=== PATIENT | male | born 1955 | race Caucasian/White ===

== ENCOUNTER 2016-08-23 09:03 | Inpatient (IN) | payer MEDICARE, BC ==
[2016-08-23] MEDS ORDERED: MORPHINE SULFATE 4 MG/ML SYRINGE IV STA (09:18)
[2016-08-23] MEDS ORDERED: ASPIRIN 81 MG CHEW PO STA (09:18)
[2016-08-23] MEDS ORDERED: NITROGLYCERIN OINT 1 INCH/GM PACKET TOPICAL STA (09:18)
--- NOTE | 2016-08-23 09:21 | ED ---
General Adult HPI - General Chief complaint: Chest Pain Stated complaint: Chest Pain Time Seen by Provider: 08/23/16 09:07 Source: patient, RN notes reviewed Mode of arrival: EMS Limitations: no limitations - History of Present Illness Initial comments: Patient is a pleasant 61-year-old male presenting to the emergency department chest discomfort. Onset was prior to arrival. Patient felt an ache in his chest. There is radiation to both arms. Discomfort is currently 8/10. Patient took one nitroglycerin at home and one in route by EMS without improvement of symptoms. Patient may have mild shortness of breath. No associated nausea or diaphoresis. Patient did have similar symptoms back and 95 associated with angina. Patient was told he had a heart attack 2 years ago however had no symptoms at that time. - Related Data Home Medications Medication Instructions Recorded Confirmed Aspirin 325 mg PO DAILY 05/31/15 08/23/16 Cholecalciferol [Vitamin D3] 1,000 unit PO DAILY 05/31/15 08/23/16 Gabapentin [Neurontin] 600 mg PO DAILY 05/31/15 08/23/16 Glimepiride [Amaryl] 2 mg PO DAILY 05/31/15 08/23/16 Lisinopril [Prinivil] 5 mg PO DAILY 05/31/15 08/23/16 Ubidecarenone [Co Q-10] 100 mg PO DAILY 05/31/15 08/23/16 Vit A,C & E/Lutein/Minerals 1 tab PO DAILY 05/31/15 08/23/16 [Ocuvite with Lutein Tablet] metFORMIN HCL 1,000 mg PO Q12HR 05/31/15 08/23/16 Gabapentin [Neurontin] 900 mg PO HS 08/23/16 08/23/16 Allergies Allergy/AdvReac Type Severity Reaction Status Date / Time erythromycin base Allergy Severe Rash/Hives Verified 08/23/16 09:55 Sulfa (Sulfonamide Allergy Severe Rash/Hives Verified 08/23/16 09:55 Antibiotics) heparin AdvReac Severe Unknown Verified 08/23/16 09:55 Review of Systems ROS Statement: Those systems with pertinent positive or pertinent negative responses have been documented in the HPI. ROS Other: All systems not noted in ROS Statement are negative. Constitutional: Denies: fever Eyes: Denies: eye pain ENT: Denies: ear pain Respiratory: Denies: cough Cardiovascular: Reports: chest pain Endocrine: Denies: fatigue Gastrointestinal: Denies: abdominal pain Genitourinary: Denies: dysuria Musculoskeletal: Denies: back pain Skin: Denies: rash Neurological: Denies: weakness Past Medical History Past Medical History: Asthma, Diabetes Mellitus, Hypertension, Myocardial Infarction (ND), Neurologic Disorder, Osteoarthritis (OA), Skin Disorder Additional Past Medical History / Comment(s): RSD, lacerated spleen, venous stasis ulcers Last Myocardial Infarction Date:: 11/2013 History of Any Multi-Drug Resistant Organisms: MRSA Date of last positivie culture/infection: 08/24/15 MDRO Source:: Left knee Past Surgical History: Heart Catheterization, Pacemaker Additional Past Surgical History / Comment(s): spinal stimulator, 2 intrathecal pump, carpal tunnel, ulnar nerve, 2 pacemakers Past Anesthesia/Blood Transfusion Reactions: No Reported Reaction, Previous Problems w/ Anesthesia Additional Past Anesthesia/Blood Transfusion Reaction / Comment(s): surgery 2006 (removal of stimulator fromn infection)-6-8 hours of anesthisia, major fluid retention Date of Last Stent Placement:: none Type of Cardiac Device: Unknown Device Placement Date:: none Past Psychological History: No Psychological Hx Reported Smoking Status: Former smoker Past Alcohol Use History: None Reported Past Drug Use History: None Reported - Past Family History Father Family Medical History: Cancer General Exam Limitations: no limitations General appearance: alert, in no apparent distress Head exam: Present: atraumatic Eye exam: Present: normal appearance, PERRL ENT exam: Present: normal oropharynx Neck exam: Present: normal inspection Respiratory exam: Present: normal lung sounds bilaterally. Absent: chest wall tenderness Cardiovascular Exam: Present: regular rate, normal rhythm Expanded Peripheral pulses: 2+: Radial (R), Radial (L), Posterior Tibialis (R), Posterior Tibialis (L) GI/Abdominal exam: Present: soft. Absent: tenderness Extremities exam: Present: normal inspection. Absent: pedal edema, calf tenderness Neurological exam: Present: alert Psychiatric exam: Present: normal affect, normal mood Skin exam: Absent: rash Course Vital Signs 08/23/16 08/23/16 08/23/16 09:04 09:18 10:03 Temperature 98.4 F Pulse Rate 66 57 L Respiratory 18 18 Rate Blood Pressure 151/72 160/72 O2 Sat by Pulse 96 95 Oximetry EKG Findings - EKG Comments: EKG Findings:: Normal sinus rhythm at 67. Normal intervals. Left axis. Inferior and anterior Q waves. No acute ST change. Medical Decision Making - Medical Decision Making Patient reexamined and resting comfortably in bed. Discomfort is mild at this time. Case discussed in detail with Dr. Coburn, who will admit for hospital call. Patient and family updated. Admission orders written. Cardiology consult placed. - Lab Data Result diagrams: 08/23/16 09:17 08/23/16 09: Lab Results 08/23/16 08/23/16 08/23/16 Range/Units 09: 09: 09:17 WBC 4.6 (3.8-10.6) k/uL RBC 4.48 (4.30-5.90) m/uL Hgb 12.4 L (13.0-17.5) gm/dL Hct 38.7 L (39.0-53.0) % MCV 86.3 (80.0-100.0) fL MCH 27.7 (25.0-35.0) pg MCHC 32.0 (31.0-37.0) g/dL RDW 16.4 H (11.5-15.5) % Plt Count 162 (150-450) k/uL Neutrophils % 60 % Lymphocytes % 25 % Monocytes % 5 % Eosinophils % 5 % Basophils % 1 % Neutrophils # 2.8 (1.3-7.7) k/uL Lymphocytes # 1.2 (1.0-4.8) k/uL Monocytes # 0.3 (0-1.0) k/uL Eosinophils # 0.2 (0-0.7) k/uL Basophils # 0.0 (0-0.2) k/uL Hypochromasia Slight Anisocytosis Slight PT (9.0-12.0) sec INR (<1.1) APTT (22.0-30.0) sec D-Dimer (<0.60) mg/L FEU Sodium 140 (137-145) mmol/L Potassium 4.1 (3.5-5.1) mmol/L Chloride 100 (98-107) mmol/L Carbon Dioxide 26 (22-30) mmol/L Anion Gap 14 mmol/L BUN 19 (9-20) mg/dL Creatinine 0.94 (0.66-1.25) mg/dL Est GFR (MDRD) Af Amer >60 (>60 ml/min/1.73 sqM) Est GFR (MDRD) Non-Af >60 (>60 ml/min/1.73 sqM) Glucose 201 H (74-99) mg/dL Calcium 9.8 (8.4-10.2) mg/dL Magnesium 1.7 (1.6-2.3) mg/dL Total Bilirubin 0.7 (0.2-1.3) mg/dL AST 45 (17-59) U/L ALT 38 (21-72) U/L Alkaline Phosphatase 40 (38-126) U/L Total Creatine Kinase 1052 H (55-170) U/L CK-MB (CK-2) 9.9 H* (0.0-2.4) ng/mL CK-MB (CK-2) Rel Index 0.9 Troponin I 0.024 (0.000-0.034) ng/mL Total Protein 8.3 H (6.3-8.2) g/dL Albumin 4.4 (3.5-5.0) g/dL 08/23/16 Range/Units 09:17 WBC (3.8-10.6) k/uL RBC (4.30-5.90) m/uL Hgb (13.0-17.5) gm/dL Hct (39.0-53.0) % MCV (80.0-100.0) fL MCH (25.0-35.0) pg MCHC (31.0-37.0) g/dL RDW (11.5-15.5) % Plt Count (150-450) k/uL Neutrophils % % Lymphocytes % % Monocytes % % Eosinophils % % Basophils % % Neutrophils # (1.3-7.7) k/uL Lymphocytes # (1.0-4.8) k/uL Monocytes # (0-1.0) k/uL Eosinophils # (0-0.7) k/uL Basophils # (0-0.2) k/uL Hypochromasia Anisocytosis PT 10.6 (9.0-12.0) sec INR 1.0 (<1.1) APTT 23.1 (22.0-30.0) sec D-Dimer 0.70 H (<0.60) mg/L FEU Sodium (137-145) mmol/L Potassium (3.5-5.1) mmol/L Chloride (98-107) mmol/L Carbon Dioxide (22-30) mmol/L Anion Gap mmol/L BUN (9-20) mg/dL Creatinine (0.66-1.25) mg/dL Est GFR (MDRD) Af Amer (>60 ml/min/1.73 sqM) Est GFR (MDRD) Non-Af (>60 ml/min/1.73 sqM) Glucose (74-99) mg/dL Calcium (8.4-10.2) mg/dL Magnesium (1.6-2.3) mg/dL Total Bilirubin (0.2-1.3) mg/dL AST (17-59) U/L ALT (21-72) U/L Alkaline Phosphatase (38-126) U/L Total Creatine Kinase (55-170) U/L CK-MB (CK-2) (0.0-2.4) ng/mL CK-MB (CK-2) Rel Index Troponin I (0.000-0.034) ng/mL Total Protein (6.3-8.2) g/dL Albumin (3.5-5.0) g/dL - Radiology Data Radiology results: report reviewed (Computed tomography scan of the chest shows no pulmonary embolism. Stable exam.), image reviewed (Two-view chest x-ray shows mild interstitial change.) Disposition Clinical Impression: Elevated CPK, Chest pain Disposition: ADMITTED IP TO THIS HOSP
[2016-08-23 09:37] LABS: Anisocytosis Slight; Basophils % (A) 1 %; CH 27.2; CHCM 31.6; Eosinophils # (A) 0.2 k/uL (0-0.7); Eosinophils % (A) 5 %; HCT 38.7 % (39.0-53.0); HGB 12.4 gm/dL (13.0-17.5); Hypochromasia Slight; Luc # (Auto) 0.14; Luc % (Auto) 3; Lymphocytes # (A) 1.2 k/uL (1.0-4.8); Lymphocytes % (A) 25 %; MCH 27.7 pg (25.0-35.0); MCV 86.3 fL (80.0-100.0); Mean Platelet Volume 7.5; Monocytes # (A) 0.3 k/uL (0-1.0); Monocytes % (A) 5 %; Neutrophils # (A) 2.8 k/uL (1.3-7.7); Neutrophils % (A) 60 %; RBC 4.48 m/uL (4.30-5.90); RDW 16.4 % (11.5-15.5); WBC 4.6 k/uL (3.8-10.6); WBC (Perox) 4.61
[2016-08-23 09:46] LABS: Partial Thromboplastin Time 23.1 sec (22.0-30.0); Prothrombin Time 10.6 sec (9.0-12.0)
[2016-08-23 10:04] LABS: Troponin I 0.024 ng/mL (0.000-0.034)
[2016-08-23 10:08] LABS: Creatine Kinase MB 9.9 ng/mL (0.0-2.4)
[2016-08-23] MEDS ORDERED: RX INFO: IV CONTRAST WAS GIVEN 1 EACH MISC MISCELLANE PRN (10:10)
[2016-08-23 10:25] LABS: ALT 38 U/L (21-72); AST 45 U/L (17-59); Alkaline Phosphatase 40 U/L (38-126); Anion Gap 14 mmol/L; Blood Urea Nitrogen 19 mg/dL (9-20); Calcium 9.8 mg/dL (8.4-10.2); Carbon Dioxide 26 mmol/L (22-30); Chloride 100 mmol/L (98-107); Glucose 201 mg/dL (74-99); Magnesium 1.7 mg/dL (1.6-2.3); Non-African American GFR(MDRD) >60 (>60 ml/min/1.73 sqM); Potassium 4.1 mmol/L (3.5-5.1); Sodium 140 mmol/L (137-145); Total Bilirubin 0.7 mg/dL (0.2-1.3); Total Protein 8.3 g/dL (6.3-8.2)
--- NOTE | 2016-08-23 10:29 | XR ---
EXAMINATION TYPE: XR chest 2V DATE OF EXAM: 08/23/2016 9:50 AM COMPARISON: None HISTORY: 61-year-old male with chest pain TECHNIQUE: AP and lateral views FINDINGS: Heart is upper limits of normal in size. Aorta within normal limits. Diffuse interstitial opacities p robably in part chronic. Strandy atelectasis at the left base. No tahir consolidation or pleural effu kevin. Right anterior chest wall pacemaker generator with right atrial and right ventricular leads. IMPRESSION: Diffuse interstitial opacities probably in part chronic. Correlate to exclude mild CHF.
--- NOTE | 2016-08-23 11:17 | CT ---
CT CHEST FOR PULMONARY EMBOLISM. EXAMINATION TYPE: CT angio chest DATE OF EXAM: 08/23/2016 10:58 AM INDICATION: Chest pain with SOB CT DLP: 404.1 mGycm, Automated exposure control for dose reduction was used. CONTRAST: Patient injected with 62 mL of Omnipaque 350. COMPARISON: 09/13/2014 CT chest TECHNIQUE: CT of the chest is performed on a spiral scan at 2 mm thick sections. Study is performed with intravenous contrast timed for evaluation for pulmonary embolism. This will limit additional po rtions of the evaluation. 3-D MIP images reconstructed by the technologist are reviewed on the compu ter in the coronal and sagittal planes. FINDINGS: No persistent filling defects are evident to suggest an acute pulmonary embolism. No mediastinal or hilar adenopathy enlarged by CT criteria is evident. The ascending aorta diameter at the level of the main pulmonary artery is 3.4 cm. The main pulmonary artery diameter at the bifur cation is 2.6 cm. Small hiatal hernia is present. There is a 0.5 cm density adjacent to the pleura in the posterior rig ht midlung. Image 61. A 0.9 cm nodules in the posterior medial right midlung. Series 5 image 69. Thes e are present on the comparison CT of 09/13/2014. Minimal compressive atelectasis is within the left lung base. Limited CT section through the upper abdomen are unremarkable. IMPRESSIONS: 1. No acute pulmonary process. 2. Stable nodules from September 2014.
[2016-08-23] MEDS ORDERED: NITROGLYCERIN SL TABS 0.4 MG TAB SUBLINGUAL PRN (11:36)
[2016-08-23 12:45] LABS: Glucose,Whole Blood 160 mg/dL (75-99)
[2016-08-23] MEDS ORDERED: ENOXAPARIN 100 MG/ML SYRINGE SQ STA (13:49)
[2016-08-23] MEDS ORDERED: AMINOPHYLLINE 500 MG/20 ML VIAL IV PRN (15:09)
[2016-08-23 15:36] VITALS: BMI 31.3
[2016-08-23 17:01] LABS: Glucose,Whole Blood 152 mg/dL (75-99)
[2016-08-23] MEDS: NITROGLYCERIN OINT 1 INCH/GM PACKET TOPICAL SCH ×2 (17:33→22:16)
[2016-08-23] MEDS: LISINOPRIL 5 MG TAB PO SCH (17:39)
[2016-08-23] MEDS: METOPROLOL TARTRATE 25 MG TAB PO SCH (17:39)
[2016-08-23 18:09] LABS: Creatine Kinase MB 12.9 ng/mL (0.0-2.4)
[2016-08-23 18:10] LABS: Troponin I 1.34 ng/mL (0.000-0.034)
[2016-08-23] MEDS: GABAPENTIN 300 MG CAP PO SCH (20:59)
--- NOTE | 2016-08-23 21:35 | CONS ---
DATE OF CONSULTATION: 08/23/2016 This is a 61-year-old gentleman who has multiple medical problems and has his cardiac care at [facility] under the care of Dr. Shaggy Miranda. This gentleman apparently has a history of some ulnar nerve surgery followed by reflex sympathetic dystrophy with pain all over the body. He uses muscle stimulators. He has an intrathecal catheter with a pump under his skin over the abdomen. He has a permanent pacemaker, details of which are unavailable, and the pacemaker was placed in the late . He also has a history of coronary artery disease with previous angioplasty in the mid-. Does not recall a documented RI, but has ordered RI on EKG. This is his background history. He came into the hospital because of an episode of what he describes as a sensation of a very warm feeling in his chest, an achy sensation that seemed to hit them rather suddenly, radiating to both upper extremities. He took a nitroglycerin with no relief obtained. He then came into the hospital. No nausea or diaphoresis. He is resting comfortably. Symptoms are better, but he did have this at rest. He also has occasional exertional chest discomfort. He is comfortable and symptom-free at this time. He has a history of type 2 diabetes mellitus as well and significant risk factors for coronary artery disease. PAST MEDICAL HISTORY: 1. CAD with prior RI and PTCA, details unclear, in mid or early . 2. Bronchial asthma. 3. Type 2 diabetes mellitus. 4. Hypertension. 5. History of some ulnar neuropathy, followed by reflex sympathetic dystrophy, details are unclear. Medications at home include aspirin, vitamin supplements, Amaryl 2 mg daily, lisinopril 5 mg daily, vitamin supplements, metformin 1000 mg every 12 hours. ALLERGIES: ERYTHROMYCIN, SULFA, QUESTION OF INTRAVENOUS IV HEPARIN ALLERGY and he says that he just feels different when he takes heparin. The type of allergy is somewhat unclear, however, he can tolerate enoxaparin. On examination, blood pressure is 140/70, pulse rate is 68 per minute, regular. HEENT unremarkable. Fundus was not examined by me. Neck is supple. There is no JVD. I do not hear a carotid bruit. Heart exam reveals S1 and S2 heard normally. There is a short systolic murmur at the base with preserved second heart sound. Lungs are clear. Abdomen is soft, nontender. There is a subcutaneous pump noted for his intrathecal injection. No organomegaly. Right lower extremity has chronic changes with some edema and there is a nonhealing ulcer. Left lower extremity reveal diminished pulses. Right lower extremity pulses are not palpable. Central nervous system grossly no focal deficits. EKG revealed a sinus mechanism with minor nonspecific ST-T changes, no acute findings, evidence of old inferior RI. IMPRESSION: 1. Atypical chest pain in a patient with history of coronary artery disease and multiple risk factors. 2. Type 2 diabetes mellitus. 3. History of prior myocardial infarction and percutaneous transluminal coronary angioplasty. 4. History of ulnar nerve surgery and reflex sympathetic dystrophy. RECOMMENDATIONS: I am recommending that we continue with IV heparin, perform serial troponins, update an echocardiogram and if he has no further symptoms perform a Lexiscan stress test tomorrow. Based on these findings, I will make further recommendations. I will initiate him on metoprolol tartrate 25 mg daily, lisinopril 5 mg daily and his glimepiride will also be resumed. We will obtain additional troponin levels and perform an echocardiogram and a Lexiscan stress test. Based on these, I will make further recommendations. Thank you very much for the consult.
[2016-08-23 22:44] LABS: Creatine Kinase MB 11.8 ng/mL (0.0-2.4); Troponin I 0.969 ng/mL (0.000-0.034)
[2016-08-23 22:57] LABS: Glucose,Whole Blood 205 mg/dL (75-99)
--- NOTE | 2016-08-23 23:25 | HP ---
DATE OF ADMISSION: 08/23/2016 CHIEF COMPLAINT: Substernal chest pain. HISTORY OF PRESENT ILLNESS: Mr. Roque is a 61 -year-old male with a past medical history of coronary artery disease, asthma, Type 2 diabetes mellitus, hypertension coming into the hospital with chief complaint of substernal chest pain. The patient states that he woke up this morning feeling pressure like symptoms in the substernal area. Pain has been radiating to the back associated with some difficulty in breathing this morning. The patient states that he has history of coronary artery disease and is not sure whether he had stents in the past. He states he follows with his literacy education professor at [facility]. His literacy education professor is Dr. Maritza Miranda. The patient denies having any loss of consciousness. No nausea or vomiting. He denies having any abdominal pain or diarrhea or constipation. He quit smoking in 1989. The patient also has a history of pacemaker in place that was done in 1989. The patient does have extensive history of neuropathy followed by reflex sympathetic dystrophy. He states that he has spinal stimulator and intra thecal pump and he follows with pain clinic at [facility]. He denies having any chills, or rigors. No cough. No sputum production. He denies having any recurrent infections . He states that he is compliant with his medications. He denies having any other symptoms. REVIEW OF SYSTEMS: All 13 review of systems are done and are negative except as mentioned above. Past medical history significant for coronary artery disease, asthma, Type 2 diabetes mellitus, hypertension, reflex sympathetic dystrophy, pacemaker placement. ALLERGIES: HEPARIN. AZITHROMYCIN, SULFONAMIDES. Patient's home medications: 1. MVT supplements 2. Gabapentin 600 mg p.o. daily. 3. Vitamin D 3000 units p.o. daily. 4. Aspirin 325 mg p.o. daily. 5. Cyanocobalamin 1000 mg b.i.d. 6. Lisinopril 5 daily. 7. Coenzyme Q 100 mg daily. 8. Amaryl 2 mg p.o. daily. 9. Gabapentin 900 mg q.h.s. PAST SURGICAL HISTORY: Pacemaker placement, spinal stimulator placed and he also has intrathecal pump. SOCIAL HISTORY: Quit smoking in 1989, occasional alcohol use. No history of drug abuse. FAMILY HISTORY: Positive for unknown cancer. On examination, patient's vital: Temperature 98.2, heart rate 54, respiratory rate 16, blood pressure 133/52, saturating at 95% on room air. GENERAL: The patient appears to be in no apparent distress. HEAD: Atraumatic, normocephalic. EYES: Pupils equal, round and reactive to light. NECK: No JVD. No thyromegaly. RESPIRATORY : Breath sounds . No wheeze or crackles. CARDIOVASCULAR: The patient has a pacemaker on the left anterior chest wall. S1 nad S2 heard . No additional sounds. ABDOMEN: Soft and nontender. Bowel sounds positive. EXTREMITIES: No edema. No cyanosis. A few hyperpigmented patches seen. NEUROLOGICAL: Alert, awake and oriented times three. No focal deficits. MUSCULOSKELETAL: No joint swelling or deformities. PSYCHIATRIC: Appropriate mood. . LABORATORY DATA: Hemoglobin 12.5, platelets 162, Sodium 140, potassium 4.9, chloride 100, bicarb 26, BUN 19, creatinine 0.94. D. dimer 0.70. Troponin 0.024. Repeat is 1.340. EKG shows minor nonspecific ST-T wave changes, evidence of old inferior wall myocardial infarction. ASSESSMENT AND PLAN: 1. Non-ST elevation myocardial infarction. 2. Type 2 diabetes mellitus. 3. History of coronary artery disease. 4. Reflex sympathetic dystrophy 5. Hyperlipidemia. 6. Pacemaker in place. 7. Spinal stimulator and intrathecal pump for reflex sympathetic dystrophy. PLAN: The patient to be continued on IV Heparin for his N-STEMI. Patient might need a cath. We will keep the patient n.p.o. tonight. Cardiology on board. We will continue the rest of his home medications regimen. Overall prognosis is guarded. Further recommendations to follow depending on clinical course of the patient. JUSTAD
[2016-08-23] MEDS: metFORMIN 500 MG TAB PO SCH (23:41)
[2016-08-24] MEDS: HYDROcodone/APAP 7.5-325MG 1 EACH TAB PO PRN ×2 (00:03→10:40)
[2016-08-24] MEDS: DOCUSATE 100 MG CAP PO SCH ×3 (00:03→20:05)
[2016-08-24] MEDS: INSULIN LISPRO (humaLOG) 300 UNIT/3 ML VIAL SQ SCH ×5 (00:04→22:08)
[2016-08-24] MEDS: NITROGLYCERIN OINT 1 INCH/GM PACKET TOPICAL SCH ×5 (00:07→23:27)
[2016-08-24 01:57] VITALS: RESP 18
[2016-08-24 06:08] LABS: Cholesterol 153 mg/dL (<200); HDL Cholesterol 35 mg/dL (40-60); Triglycerides 235 mg/dL (<150)
[2016-08-24 06:15] LABS: Glucose,Whole Blood 103 mg/dL (75-99)
[2016-08-24] MEDS ORDERED: NON-FORMULARY DRUG (Ubidecarenone [Co Q-10] 100 MG) PO SCH (09:00)
[2016-08-24] MEDS ORDERED: ASPIRIN 325 MG TAB PO SCH ×2 (09:00)
[2016-08-24] MEDS: GABAPENTIN 300 MG CAP PO SCH ×2 (10:33→20:05)
[2016-08-24] MEDS: LISINOPRIL 5 MG TAB PO SCH (10:35)
[2016-08-24] MEDS: METOPROLOL TARTRATE 25 MG TAB PO SCH ×2 (10:37→20:05)
[2016-08-24] MEDS ORDERED: ALPRAZolam 0.5 MG TAB PO PRN (10:39)
[2016-08-24] MEDS ORDERED: NITROGLYCERIN SL TABS 0.4 MG TAB SUBLINGUAL PRN (10:39)
[2016-08-24] MEDS ORDERED: ALPRAZolam 0.25 MG TAB PO PRN (10:39)
[2016-08-24] MEDS ORDERED: SODIUM CHLORIDE 0.9% 1,000 ML in EMPTY BAG 1 BAG IV ONE (10:39)
[2016-08-24] MEDS ORDERED: ASPIRIN 325 MG TAB PO STA (10:39)
[2016-08-24] MEDS ORDERED: ATORVASTATIN 80 MG TAB PO STA (10:41)
[2016-08-24] MEDS ORDERED: REGADENOSON 0.4 MG/5 ML SYRINGE IV ONE (11:22)
--- NOTE | 2016-08-24 11:27 | NM ---
"EXAMINATION TYPE: NM stress lexiscan cardiolite DATE OF EXAM: 08/24/2016 10:52 AM COMPARISON: CTA chest from yesterday. HISTORY: History of asthma and prior heart attack as well as tobacco use in the past, hypertension, d iabetes, angina, and hypercholesteremia presents with chest pain. TECHNIQUE: After the intravenous administration of 11 mCi Tc 99m Sestamibi - Cardiolite resting SPEC T images acquired 55 minutes post injection. The patient received 0.4mg Lexiscan, 27.5 mCi Tc 99m Sestamibi - Stress images obtained [address] injection FINDINGS: Review of stress and rest SPECT images demonstrates no area of diminished uptake on stress images kalyani t shows increased perfusion on rest images involving the inferior lateral ventricular wall confirmed on short axis as well horizontal and vertical long axis views worrisome for area of acute ischemia mo st prominent at base and mid segment. Gated analysis shows normal wall motion with an estimated left ventricular ejection fraction of 71 %. IMPRESSION: Suspicion for acute ischemia involving the inferolateral left ventricular wall. Consider direct chucky ter angiogram follow-up. A Yellow message has been communicated to Lobo Hernandez MD~[id number] via the [employer] | [employer] Result system on 08/24/2016 11:24 AM, Message ID [id number]."
[2016-08-24 11:41] LABS: Glucose,Whole Blood 189 mg/dL (75-99)
--- NOTE | 2016-08-24 11:47 | ECHOF ---
Referral Reason:chest pain MEASUREMENTS -------- HEIGHT: 170.2 cm WEIGHT: 90.7 kg BP: 142/63 RVIDd: 3.5 cm (< 3.3) IVSd: 1.0 cm (0.6 - 1.1) LVIDd: 5.6 cm (3.9 - 5.3) LVPWd: 1.0 cm (0.6 - 1.1) IVSs: 1.7 cm LVIDs: 3.5 cm LVPWs: 1.3 cm LA Diam: 4.0 cm (2.7 - 3.8) LAESV Index (A-L): 27.93 ml/m Ao Diam: 2.8 cm (2.0 - 3.7) AV Cusp: 2.0 cm (1.5 - 2.6) LA Diam: 3.7 cm (2.7 - 3.8) MV EXCURSION: 13.883 mm (> 18.000) MV EF SLOPE: 99 mm/s (70 - 150) EPSS: 0.5 cm MV E Alvaro: 1.11 m/s MV DecT: 200 ms MV A Alvaro: 0.68 m/s MV E/A Ratio: 1.63 RAP: 5.00 mmHg RVSP: 36.85 mmHg FINDINGS -------- Paced rhythm. Pacerwire seen in RV and RA. This was a technically good study. Left ventricular wall thickness is normal. Overall left ventricular systolic function is normal with, an EF between 55 - 60 %. Mitral Doppler inflow pattern suggests diastolic filling abnormality 16.33. The right ventricle is mildly enlarged. Normal LA size by volume 22+/-6 ml/m2. The right atrium is normal in size. Aortic valve is trileaflet and is mildly thickened. Mild mitral annular calcification present. Mild mitral regurgitation is present. Mild tricuspid regurgitation present. There is mild pulmonary hypertension. The right ventricular systolic pressure, as measured by Doppler, is 36.85mmHg. Trace/mild (physiologic) pulmonic regurgitation. The aortic root size is normal. Normal inferior vena cava with normal inspiratory collapse consistent with estimated right atrial pressure of 5 mmHg. There is no pericardial effusion. CONCLUSIONS -------- 1. Paced rhythm. 2. Aortic valve is trileaflet and is mildly thickened. 3. Mild mitral annular calcification present. 4. Mild mitral regurgitation is present. 5. Mild tricuspid regurgitation present. 6. There is mild pulmonary hypertension. 7. The right ventricular systolic pressure, as measured by Doppler, is 36.85mmHg. 8. Trace/mild (physiologic) pulmonic regurgitation. 9. The aortic root size is normal. 10. Normal inferior vena cava with normal inspiratory collapse consistent with estimated right atrial pressure of 5 mmHg. 11. There is no pericardial effusion. 12. Pacerwire seen in RV and RA. 13. This was a technically good study. 14. Left ventricular wall thickness is normal. 15. Overall left ventricular systolic function is normal with, an EF between 55 - 60 %. 16. Mitral Doppler inflow pattern suggest diastolic filling abnormality 16.33. 17. The right ventricle is mildly enlarged. 18. Normal LA size by volume 22+/-6 ml/m2. 19. The right atrium is normal in size. TIRE BUFFER: Toribio Bocanegra RDCS
--- NOTE | 2016-08-24 11:48 | P.PN ---
Subjective Principal diagnosis: chest pain this is a 61-year-old gentleman with known history of coronary artery disease and prior myocardial infarction with PTCA, diabetes, hypertension, hyperlipidemia, bronchial asthma, he follows with a roll reclaimer at [facility]. He was seen in consultation yesterday by Dr. David Hernandez. Patient ruled in for non-Q-wave myocardial infarction, initially he was scheduled to undergo a Lexiscan stress test however because of the abnormal troponins patient was advised to undergo cardiac catheterization. The risks and the benefits were explained to the patient in detail, this will be performed today by Dr. David Hernandez. Objective - Vital Signs Vital signs: Vital Signs Temp 97.8 F 08/24/16 08:00 Pulse 73 08/24/16 11:36 Resp 18 08/24/16 11:36 BP 176/84 08/24/16 11:36 Pulse Ox 98 08/24/16 11:36 Intake & Output 08/23/16 08/24/16 08/24/16 18:59 06:59 18:59 Intake Total 500 500 Balance 500 500 Weight 90.718 kg 92.5 kg Intake: Oral 500 500 Other: Voiding Method Toilet Toilet # Voids 1 # Bowel Movements 1 - Exam PHYSICAL EXAMINATION: HEENT: [Head is atraumatic, normocephalic. Pupils equal, round. Neck is supple. There is no elevated jugular venous pressure.] HEART EXAMINATION: [Heart S1, S2 systolic murmur heard] CHEST EXAMINATION:[ Lungs are clear to auscultation and precussion. No chest wall tenderness is noted on palpation or with deep breathing.] ABDOMEN: [ Soft, nontender. Bowel sounds are heard. No organomegaly noted]. EXTREMITIES:[ 2+ peripheral pulses with no evidence of peripheral edema and no calf tenderness noted]. NEUROLOGIC [patient is awake, alert and oriented -3.] . - Labs CBC & Chem 7: 08/23/16 09:17 08/23/16 09:17 Labs: Abnormal Lab Results - Last 24 Hours (Table) 08/23/16 08/23/16 08/23/16 Range/Units 12:25 16:47 16:55 POC Glucose (mg/dL) 160 H 152 H (75-99) mg/dL Total Creatine Kinase 810 H (55-170) U/L CK-MB (CK-2) 12.9 H* (0.0-2.4) ng/mL Troponin I 1.340 H* (0.000-0.034) ng/mL Triglycerides (<150) mg/dL HDL Cholesterol (40-60) mg/dL 08/23/16 08/23/16 08/24/16 Range/Units 21:37 22:56 05:35 POC Glucose (mg/dL) 205 H (75-99) mg/dL Total Creatine Kinase 683 H (55-170) U/L CK-MB (CK-2) 11.8 H* (0.0-2.4) ng/mL Troponin I 0.969 H* (0.000-0.034) ng/mL Triglycerides 235 H (<150) mg/dL HDL Cholesterol 35 L (40-60) mg/dL 08/24/16 08/24/16 Range/Units 05:35 06:13 POC Glucose (mg/dL) 103 H (75-99) mg/dL Total Creatine Kinase (55-170) U/L CK-MB (CK-2) (0.0-2.4) ng/mL Troponin I 0.682 H* (0.000-0.034) ng/mL Triglycerides (<150) mg/dL HDL Cholesterol (40-60) mg/dL Assessment and Plan (1) NSTEMI (non-ST elevated myocardial infarction) Status: Acute (2) CAD (coronary artery disease) Status: Acute (3) HTN (hypertension) Status: Acute (4) Hyperlipemia Status: Acute (5) Diabetes Status: Acute Plan: Patient is advised to undergo cardiac catheterization, the risks and the benefits were explained to the patient in detail, this will be performed today by Dr. David Hernandez. DNP note has been reviewed, I agree with a documented findings and plan of care. Patient was seen and examined.
[2016-08-24 12:15] LABS: Hemoglobin A1C 7.5 % (4.2-6.1)
--- NOTE | 2016-08-24 14:05 | P.CONS ---
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, started in year 1999, after nerve damage in his left upper extremity, and later on he had widespread or CRPS, which required him to have a spinal cord stimulator and later on he had intrathecal pain pump implanted, constipation getting good intrathecal pain medication Dilaudid/Marcaine/baclofen, and he is being followed at [facility] pain clinic, and his pain currently controlled with the intrathecal pain pump, recently he was admitted to [facility] because of substernal chest pain, and cardiology on board, and patient will have cardiac stress test and possible cardiac catheterization, patient reported that since admission his pain not controlled with the [place] 7.5 for breakthrough pain . Past Medical History Past Medical History: Asthma, Chest Pain / Angina, Diabetes Mellitus, Hyperlipidemia, Hypertension, Myocardial Infarction (NM), Neurologic Disorder, Osteoarthritis (OA), Skin Disorder Additional Past Medical History / Comment(s): RSD, lacerated spleen, venous stasis ulcers Last Myocardial Infarction Date:: 11/2013 History of Any Multi-Drug Resistant Organisms: MRSA Year Discovered:: 08/24/15 MDRO Source:: Left knee Past Surgical History: Heart Catheterization With Stent, Pacemaker Additional Past Surgical History / Comment(s): spinal stimulator, 2 intrathecal pump, carpal tunnel, ulnar nerve, 2 pacemakers Past Anesthesia/Blood Transfusion Reactions: No Reported Reaction, Previous Problems w/ Anesthesia Additional Past Anesthesia/Blood Transfusion Reaction / Comm: surgery 2006 ( removal of stimulator fromn infection)-6-8 hours of anesthisia, major fluid retention Date of Last Stent Placement:: 1994 Type of Cardiac Device: Permanent Pacemaker Device Placement Date:: 2014 Past Psychological History: No Psychological Hx Reported Smoking Status: Former smoker Past Alcohol Use History: None Reported Past Drug Use History: None Reported - Past Family History Father Family Medical History: Cancer Medications and Allergies Home Medications Medication Instructions Recorded Confirmed Type Aspirin 325 mg PO DAILY 05/31/15 08/23/16 History Cholecalciferol [Vitamin D3] 1,000 unit PO DAILY 05/31/15 08/23/16 History Gabapentin [Neurontin] 600 mg PO DAILY 05/31/15 08/23/16 History Glimepiride [Amaryl] 2 mg PO DAILY 05/31/15 08/23/16 History Lisinopril [Prinivil] 5 mg PO DAILY 05/31/15 08/23/16 History Ubidecarenone [Co Q-10] 100 mg PO DAILY 05/31/15 08/23/16 History Vit A,C & E/Lutein/Minerals 1 tab PO DAILY 05/31/15 08/23/16 History [Ocuvite with Lutein Tablet] metFORMIN HCL 1,000 mg PO Q12HR 05/31/15 08/23/16 History Atorvastatin Calcium [Lipitor] 10 mg PO HS 08/23/16 08/23/16 History Gabapentin [Neurontin] 900 mg PO HS 08/23/16 08/23/16 History Allergies Allergy/AdvReac Type Severity Reaction Status Date / Time erythromycin base Allergy Severe Rash/Hives Verified 08/23/16 09:55 Sulfa (Sulfonamide Allergy Severe Rash/Hives Verified 08/23/16 09:55 Antibiotics) heparin AdvReac Severe Unknown Verified 08/23/16 09:55 Physical Exam Vitals: Vital Signs Temp Pulse Resp BP Pulse Ox 08/24/16 11:36 73 18 176/84 98 08/24/16 08:00 97.8 F 58 L 18 161/74 97 08/24/16 04:00 97.8 F 50 L 18 138/83 94 L 08/24/16 00:00 98.5 F 59 L 18 162/77 96 08/23/16 20:00 98.2 F 64 18 192/78 95 08/23/16 16:00 98.2 F 54 L 16 133/62 93 L Intake and Output 08/23/16 08/24/16 08/24/16 22:59 06:59 14:59 Intake Total 500 0 Balance 500 0 Intake: Intake, IV Titration 0 Amount Sodium Chloride 0.9% 1, 0 000 ml In Empty Bag 1 bag @ 1 ML/KG/HR 92.5 mls/hr IV .[id number] ONE Rx#: [id number] Oral 500 Other: Voiding Method Toilet Toilet # Voids 1 # Bowel Movements 1 Weight 92.5 kg Social history : not smoker , NO ETOH , NO Illegal drugs use . Family history : , positive for cancer Review of Systems : 1- Constitutional : no chills , no fever , no night sweats , 2- Ears : no ear discharge , no change in hearing 3-Nose, Mouth ,Throat ; no bleeding gums, no sore throat , no epistaxis , 4-Cardiovascular : hchest pain, , no orthopnea , no palpitation 5-Respiratory : Denies cough , no dyspnea , no hemoptysis 6-Gastrointestinal :, no change in bowel habits , no coffee- ground emesis . 7-Genitourinary : No hematuria , no discharge , no incontinence, 8-Musculoskeletal : No gait dysfunction , report low back pain , 9- Neurological : no ataxia , no tremor , no sezure , 10-Psychatric , no suicidal ideation no hallucination 11- Endocrine : no cold intolerence , no polyuria , no polydypsia , 12-Hematologic : on heparin 13-Allergic / immunology : no angioedema , no wheezing ,no allergic rhinitis 14-Integumentary : no brttle nails , no change hair / nails , no foot/leg ulcers . Physical Examinations : 1-Constitutional : Cooperative , not in acute distress . 2-HEENT : nech ; supple , no Lymphadenopathy , no Thyromegaly , :eyes , no icterus, no photophobia . ENT : , normal oropharynx , no Thrush 3- Respiratory : Chest clear to auscultations Bilaterally , no wheezing . 4- Cardiovascular : regular rate and rhythem , (Paced ) 5- Gastrointestinal: abdomen soft no tenderness , no organomegally . 6- Genitourinary : Defferred . 7-Integumentary : No cellulitis , no ulcers , normal skin turgor , no cyanotic . 8- neurologic : Cranial nerve II to XII intact , no focal neurological deffecit 9-psychatric : alert , oriented X 3 , appropriate affect , intact judgment and insight . 10-Lymphatic : no Lymphadenopathy. 11- musculoskeltal: normal gait exams of the cervical spine = motor stregnth in the deltoid and biceps, normal right side , normal Left side exams of the Lumber spine = moter stegnth lower extremities , thigh and legs 5/5 Right side , 5/5 Left side Results CBC & Chem 7: 08/23/16 09:17 08/23/16 09:17 Labs: Abnormal Lab Results - Last 24 Hours (Table) 08/23/16 08/23/1608/23/17 Range/Units 16:47 16:55 21:37 POC Glucose (mg/dL) 152 H (75-99) mg/dL Hemoglobin A1c (4.2-6.1) % Total Creatine Kinase 810 H 683 H (55-170) U/L CK-MB (CK-2) 12.9 H* 11.8 H* (0.0-2.4) ng/mL Troponin I 1.340 H* 0.969 H* (0.000-0.034) ng/mL Triglycerides (<150) mg/dL HDL Cholesterol (40-60) mg/dL 08/23/16 08/24/16 08/24/16 Range/Units 22:56 05:35 05:35 POC Glucose (mg/dL) 205 H (75-99) mg/dL Hemoglobin A1c (4.2-6.1) % Total Creatine Kinase (55-170) U/L CK-MB (CK-2) (0.0-2.4) ng/mL Troponin I 0.682 H* (0.000-0.034) ng/mL Triglycerides 235 H (<150) mg/dL HDL Cholesterol 35 L (40-60) mg/dL 08/24/16 08/24/16 08/24/16 Range/Units 05:35 06:13 11:40 POC Glucose (mg/dL) 103 H 189 H (75-99) mg/dL Hemoglobin A1c 7.5 H (4.2-6.1) % Total Creatine Kinase (55-170) U/L CK-MB (CK-2) (0.0-2.4) ng/mL Troponin I (0.000-0.034) ng/mL Triglycerides (<150) mg/dL HDL Cholesterol (40-60) mg/dL Assessment and Plan Plan: Assessment and plan= chronic pain syndrome, Complex regional pain syndrome type II , in the upper and lower extremities, patient had the spinal cord stimulator cervical area He had an intrathecal pain pump , he has the cane under [facility] pain clinic, patient will continue his medications through the intrathecal pain pump, which is working appropriately, recommend IV morphine 2 mg every 2 hours when necessary for pain, and patient can turn off his spinal cord stimulator before the cardiac cath, and then it will be reactivated after the cardiac cath. Time with Patient: Less than 30
--- NOTE | 2016-08-24 14:18 | EST ---
DATE OF SERVICE: 08/24/2016 AGE: 61Y SEX: M HT: 67" WT: 200 lbs. Lexiscan Cardiolite Stress Test *Heart Rate Blood Pressure *Rest: 73 Rest: 175/65 * *Max. Achieved: 81 Maximum BP: 202/97 85% PMHR: 136 100% PMHR: 160 *METS: - INDICATIONS: Chest pain. MEDICATIONS: - Lexiscan nuclear study was performed. Patient was given Lexiscan injection over a period of 15 seconds. Peak heart rate of 81 was achieved. Maximum blood pressure of 202/97 mmHg was noted. EKG shows normal sinus rhythm with normal [place] interval and QRS duration and normal ST-T waves. No ST segment depression suggestive of ischemia is noted. Patient did not complain of any chest pain during the test. The results of the nuclear study will follow.
[2016-08-24] MEDS ORDERED: VERAPAMIL 2.5 MG/ML 2 ML AMP ONE (14:25)
[2016-08-24] MEDS ORDERED: MIDAZOLAM 2 MG/2 ML VIAL ONE (14:25)
[2016-08-24] MEDS ORDERED: LIDOCAINE 2% INJ 20 MG/ML (20 ML MDV) ONE (14:25)
[2016-08-24] MEDS ORDERED: diphenhydrAMINE 50 MG/ML 1 ML VIAL ONE (14:25)
[2016-08-24] MEDS ORDERED: SODIUM CITRATE 250 ML IV NR (14:45)
[2016-08-24] MEDS ORDERED: CLOPIDOGREL 75 MG TAB PO ONE (14:50)
[2016-08-24] MEDS ORDERED: SODIUM CHLORIDE 0.9% 1,000 ML IV ONE (15:00)
[2016-08-24] MEDS ORDERED: MIDAZOLAM 2 MG/2 ML VIAL IVP ONE (15:12)
[2016-08-24] MEDS ORDERED: diphenhydrAMINE 50 MG/ML 1 ML VIAL IVP ONE (15:12)
[2016-08-24] MEDS ORDERED: LIDOCAINE 2% INJ 20 MG/ML SQ ONE (15:14)
[2016-08-24] MEDS: VERAPAMIL SYRINGE (5 MG/10 ML) INTRAARTER ONE ×2 (15:16→16:55)
[2016-08-24] MEDS ORDERED: BIVALIRUDIN BOLUS 250 MG/50 ML IV ONE (15:38)
[2016-08-24] MEDS ORDERED: BIVALIRUDIN 250 MG in SODIUM CHLORIDE 0.9% 50 ML IV ONE ×2 (15:38→16:19)
[2016-08-24] MEDS: CHOLECALCIFEROL 1,000 UNIT TAB PO SCH (16:14)
[2016-08-24] MEDS: GLIMEPIRIDE 2 MG TAB PO SCH (16:15)
[2016-08-24] MEDS: VIT A,C & E-LUTEIN-MINERALS 1 EACH TAB PO SCH (16:15)
[2016-08-24] MEDS: metFORMIN 500 MG TAB PO SCH (16:15)
[2016-08-24] MEDS ORDERED: IOHEXOL 350 MG/ML 100 ML BOTTLE INJ ONE (16:38)
[2016-08-24] MEDS ORDERED: CLOPIDOGREL 75 MG TAB ONE (16:41)
[2016-08-24] MEDS: SODIUM CHLORIDE 0.9% 1,000 ML IV SCH (17:13)
[2016-08-24] MEDS: MORPHINE SULFATE 2 MG/ML SYRINGE IVP PRN ×2 (17:13→23:22)
[2016-08-24 17:33] LABS: Glucose,Whole Blood 118 mg/dL (75-99)
[2016-08-24] MEDS ORDERED: ATORVASTATIN 80 MG TAB PO SCH (21:00)
[2016-08-24] MEDS ORDERED: LISINOPRIL 10 MG TAB PO SCH (21:00)
[2016-08-24 21:02] LABS: Glucose,Whole Blood 167 mg/dL (75-99)
[2016-08-25] MEDS ORDERED: REGADENOSON 0.4 MG/5 ML SYRINGE IV ONE (05:00)
[2016-08-25 05:41] LABS: Glucose,Whole Blood 122 mg/dL (75-99)
[2016-08-25 06:07] LABS: Anisocytosis Slight; CH 27.4; CHCM 31.2; HCT 40.1 % (39.0-53.0); HDW 3.01; HGB 12.6 gm/dL (13.0-17.5); Hypochromasia Slight; MCH 27.6 pg (25.0-35.0); MCHC 31.4 g/dL (31.0-37.0); Mean Platelet Volume 7.2; RBC 4.56 m/uL (4.30-5.90); RDW 16.7 % (11.5-15.5); WBC 5.5 k/uL (3.8-10.6)
[2016-08-25 06:15] LABS: Anion Gap 11 mmol/L; Blood Urea Nitrogen 17 mg/dL (9-20); Calcium 9.6 mg/dL (8.4-10.2); Carbon Dioxide 29 mmol/L (22-30); Chloride 99 mmol/L (98-107); Glucose 129 mg/dL (74-99); Non-African American GFR(MDRD) >60 (>60 ml/min/1.73 sqM); Potassium 4.3 mmol/L (3.5-5.1); Sodium 139 mmol/L (137-145)
[2016-08-25] MEDS: INSULIN LISPRO (humaLOG) 300 UNIT/3 ML VIAL SQ SCH ×2 (06:21→12:20)
[2016-08-25] MEDS: SODIUM CHLORIDE 0.9% 1,000 ML IV SCH (06:22)
[2016-08-25] MEDS: NITROGLYCERIN OINT 1 INCH/GM PACKET TOPICAL SCH ×2 (06:23→12:19)
[2016-08-25] MEDS: VIT A,C & E-LUTEIN-MINERALS 1 EACH TAB PO SCH (08:00)
[2016-08-25] MEDS: GABAPENTIN 300 MG CAP PO SCH (08:00)
[2016-08-25] MEDS: DOCUSATE 100 MG CAP PO SCH (08:00)
[2016-08-25] MEDS: GLIMEPIRIDE 2 MG TAB PO SCH (08:00)
[2016-08-25] MEDS: METOPROLOL TARTRATE 25 MG TAB PO SCH (08:01)
[2016-08-25] MEDS: CHOLECALCIFEROL 1,000 UNIT TAB PO SCH (08:01)
[2016-08-25] MEDS: MORPHINE SULFATE 2 MG/ML SYRINGE IVP PRN ×2 (08:01→13:03)
--- NOTE | 2016-08-25 08:06 | PN ---
SUBJECTIVE DATA/INTERVAL HISTORY: This is a 61-year-old gentleman who came into the hospital with complaints of atypical chest pain. Patient apparently was noted to have a non-Q-wave MA that was initially noted. Patient does have a prior history of coronary artery disease, status post percutaneous intervention in the past. Patient underwent a stress test, which was positive. Thereafter was taken to cardiac catheterization. Patient received 2 stents. Patient was seen in the postoperative period. Denies having any headaches, blurry vision, nausea, vomiting, diarrhea, Of note, patient does have a history of a complex pain syndrome and has cervical nerve stimulator. Physical exam today includes: VITALS: Temperature 97.2, heart rate 73, respiratory rate 18, blood pressure is 176/84, saturating 98% on room air. GENERAL APPEARANCE: Alert, oriented x3 in no distress. HEENT: Head is atraumatic, normocephalic. Pupils equal, round, and react to light and accommodation. Neck is supple. No JVD. HEART: S1, S2 heard. A systolic murmur is best appreciated at the aortic region. LUNGS: Good air entry. Clear to auscultation. No rhonchi, wheezing or crackles. ABDOMEN: Soft, nontender, no organomegaly. No edema appreciated in the lower extremities. NEURO EXAM: No focal motor or sensory deficits noted. Laboratory data was reviewed, which included an elevated troponin 0.68. Glucose levels were erratic between 103 and 205. Hemoglobin was 12.4. Sodium 140, potassium 4.1, chloride 100, bicarb 26, BUN 19, creatinine of 0.94. ASSESSMENT AND PLAN: 1. Non-Q-wave myocardial infarction in a patient with known history of coronary artery disease. 2. Type 2 complex pain syndrome. 3. Diabetes mellitus, type 2. 4. History of hypertension. 5. History of peripheral neuropathy. 6. Dyslipidemia. PLAN: The patient is seen after intervention via the right radial artery. Vascular checks as recommended. Continue telemetry monitoring. Patient is on dual antiplatelet therapy. Continue high-dose statin. In regards to patient's diabetes to continue metformin and glimepiride was added as well today. Reviewed pain specialist recommendations on patient after underwent cardiac catheterization. To continue monitoring for at least another 24 to 48 hours and thereafter can be discharged home upon clearance with the media/instructional designer, the interventionalist.
[2016-08-25 08:47] VITALS: PULSE 56; TEMP 97.1
[2016-08-25] MEDS ORDERED: CLOPIDOGREL 75 MG TAB PO SCH (09:00)
[2016-08-25] MEDS ORDERED: ASPIRIN 81 MG CHEW PO SCH (09:00)
[2016-08-25 11:54] LABS: Glucose,Whole Blood 218 mg/dL (75-99)
[2016-08-25 13:47] VITALS: BP 156/72
--- NOTE | 2016-08-25 15:52 | P.PN ---
Subjective Principal diagnosis: chest pain this is a 61-year-old gentleman with known history of coronary artery disease and prior myocardial infarction with PTCA, diabetes, hypertension, hyperlipidemia, bronchial asthma, he follows with a management accounts manager at [facility]. He presented to the hospital with a non-Q-wave myocardial infarction. He was taken to the cardiac catheterization lab yesterday by Dr. David Hernandez where he underwent angioplasty with stenting of the OM. Patient was seen and examined this morning, up ambulating in the hallway, denies any chest pain or difficulty in breathing. Hemodynamically stable. EKG shows normal sinus rhythm with no changes from post-PCI. Objective - Vital Signs Vital signs: Vital Signs Temp 97.1 F L 08/25/16 08:00 Pulse 56 L 08/25/16 12:00 Resp 18 08/25/16 12:00 BP 156/72 08/25/16 12:00 Pulse Ox 95 08/25/16 12:00 Intake & Output 08/24/16 08/25/16 08/25/16 18:59 06:59 18:59 Intake Total 769 450 900 Output Total 1000 Balance -231 450 900 Weight 92.4 kg Intake: IV 353 450 Sodium Chloride 0.9% 1, 450 000 ml @ 75 mls/hr IV . [id number] ARCADIO Rx#:[id number] Oral 416 900 Output: Urine 1000 Straight 1000 Other: Voiding Method Toilet # Voids 1 1 - Exam PHYSICAL EXAMINATION: HEENT: [Head is atraumatic, normocephalic. Pupils equal, round. Neck is supple. There is no elevated jugular venous pressure.] HEART EXAMINATION: [Heart S1, S2 systolic murmur heard] CHEST EXAMINATION:[ Lungs are clear to auscultation and precussion. No chest wall tenderness is noted on palpation or with deep breathing.] ABDOMEN: [ Soft, nontender. Bowel sounds are heard. No organomegaly noted]. Right radial site clean and dry, good distal pulse. EXTREMITIES:[ 2+ peripheral pulses with no evidence of peripheral edema and no calf tenderness noted]. NEUROLOGIC [patient is awake, alert and oriented -3.] . - Labs CBC & Chem 7: 08/25/16 05:33 08/25/16 05:33 Labs: Abnormal Lab Results - Last 24 Hours (Table) 04/04/0108/24/16 08/25/16 Range/Units 17:20 20:57 05:33 Hgb 12.6 L (13.0-17.5) gm/dL RDW 16.7 H (11.5-15.5) % Glucose (74-99) mg/dL POC Glucose (mg/dL) 118 H 167 H (75-99) mg/dL 08/25/16 08/25/16 08/25/16 Range/Units 05:33 05:39 11:52 Hgb (13.0-17.5) gm/dL RDW (11.5-15.5) % Glucose 129 H (74-99) mg/dL POC Glucose (mg/dL) 122 H 218 H (75-99) mg/dL Assessment and Plan (1) NSTEMI (non-ST elevated myocardial infarction) Status: Acute (2) CAD (coronary artery disease) Status: Acute (3) HTN (hypertension) Status: Acute (4) Hyperlipemia Status: Acute (5) Diabetes Status: Acute Plan: From cardiology's perspective, patient revealed be discharged home today. We will make him a follow-up appointment to see Dr. KAM Hernandez in the office post discharge. Patient will be discharged home on aspirin 81 mg daily, Lipitor 80 mg daily, Plavix 75 mg daily, lisinopril 10 mg daily, Lopressor 25 mg twice a day, and sublingual nitroglycerin as needed for chest pain. DNP note has been reviewed, I agree with a documented findings and plan of care. Patient was seen and examined.
--- NOTE | 2016-08-25 18:18 | P.DS ---
Providers Date of admission: 08/24/16 14:13 Attending physician: Marin Coburn Primary care physician: [facility] Course: this is a 61-year-old gentleman with known history of coronary artery disease and prior myocardial infarction with PTCA, diabetes, hypertension, hyperlipidemia, bronchial asthma, he follows with a manager apple at [facility]. He presented to the hospital with a non-Q-wave myocardial infarction. Pt underwent cardiac catheterization received a PCI and PTCAto the OM-1 - Exam PHYSICAL EXAMINATION: HEENT: [Head is atraumatic, normocephalic. Pupils equal, round. Neck is supple. There is no elevated jugular venous pressure.] HEART EXAMINATION: [Heart S1, S2 systolic murmur heard] CHEST EXAMINATION:[ Lungs are clear to auscultation and precussion. No chest wall tenderness is noted on palpation or with deep breathing.] ABDOMEN: [ Soft, nontender. Bowel sounds are heard. No organomegaly noted]. Right radial site clean and dry, good distal pulse. EXTREMITIES:[ 2+ peripheral pulses with no evidence of peripheral edema and no calf tenderness noted]. NEUROLOGIC [patient is awake, alert and oriented -3.] . Assessment and Plan (1) NSTEMI (non-ST elevated myocardial infarction) Status: Acute status post cardiac intervention will need a staged procedure in 2-3 weeks. (2) CAD (coronary artery disease) Status: Acute (3) HTN (hypertension) Status: Acute (4) Hyperlipemia Status: Acute (5) Diabetes To continue dual antiplatelet therapy patient is to follow-up with Dr. KAM Hernandez. Medications were reconciled. Patient needs to come back for staged cardiac intervention in the next 2-3 weeks according to the interventional S. Patient is discharged home in stable condition patient underwent a cardiac catheterization via right radial artery Jovan checks were within normal limits. Plan - Discharge Summary New Discharge Prescriptions: Aspirin 81 mg PO DAILY #30 tab Atorvastatin [Lipitor] 80 mg PO HS #30 tab Clopidogrel [Plavix] 75 mg PO DAILY #30 tab Metoprolol Tartrate [Lopressor] 25 mg PO BID #60 tab Nitroglycerin Sl Tabs [Nitrostat] 0.4 mg SUBLINGUAL Q5M PRN #30 tab PRN Reason: Chest Pain Discharge Medication List Aspirin 325 mg PO DAILY 05/31/15 [History] Cholecalciferol [Vitamin D3] 1,000 unit PO DAILY 05/31/15 [History] Gabapentin [Neurontin] 600 mg PO DAILY 05/31/15 [History] Glimepiride [Amaryl] 2 mg PO DAILY 05/31/15 [History] Lisinopril [Prinivil] 5 mg PO DAILY 05/31/15 [History] Ubidecarenone [Co Q-10] 100 mg PO DAILY 05/31/15 [History] Vit A,C & E/Lutein/Minerals [Ocuvite with Lutein Tablet] 1 tab PO DAILY [History] metFORMIN HCL 1,000 mg PO Q12HR 05/31/15 [History] Gabapentin [Neurontin] 900 mg PO HS 08/23/16 [History] Aspirin 81 mg PO DAILY #30 tab 08/25/16 [Rx] Atorvastatin [Lipitor] 80 mg PO HS #30 tab 08/25/16 [Rx] Clopidogrel [Plavix] 75 mg PO DAILY #30 tab 08/25/16 [Rx] Metoprolol Tartrate [Lopressor] 25 mg PO BID #60 tab 08/25/16 [Rx] Nitroglycerin Sl Tabs [Nitrostat] 0.4 mg SUBLINGUAL Q5M PRN #30 tab 08/25/16 [Rx ] Follow up Appointment(s)/Referral(s): Lobo Hernandez MD [STAFF PHYSICIAN] - 09/01/16 8:45 am () Yareli Miranda MD [Primary Care Provider] - 08/31/16 12:00 pm Discharge Disposition: HOME SELF-CARE
--- NOTE | 2016-08-26 06:44 | CC ---
DATE OF SERVICE: 08/24/2016 PROCEDURE: Left heart catheterization and coronary angiography. PERFORMED BY: Dr. Ana Hernandez. CLINICAL INFORMATION: Mr. Jurgen Roque is a gentleman with a history of multiple medical problems and sees a jacquard plate maker in the [place] area. He has had previous myocardial infarction, details of which are unavailable. He apparently had an angioplasty of one of his arteries in the mid or early . Since then, he has had a stress test a couple of years ago, which were unremarkable. He came into the hospital with episode of chest pain went on to have troponin elevation as well. Stress test revealed inferolateral ischemia. He was advised coronary angiography. Risks, benefits, options and rationale were discussed with the patient and his . PROCEDURE NOTE: Under local anesthesia and strict aseptic precautions, a 6 Slovenian introducer was placed in the right radial artery. Using an Ultimate 1 catheter, I performed injections of the left coronary artery as well as the right coronary artery. I noted that there was a 95% ostial lesion involving the circumflex and also a lesion involving the RCA, which was a more stable lesion. I recommended intervention to be performed expeditiously. CORONARY ANGIOGRAPHY FINDINGS: LEFT MAIN CORONARY ARTERY: This is a short, patent, disease-free vessel that bifurcates into LAD and circumflex. Left main itself has some smooth tapering, but no significant lesion. LEFT ANTERIOR DESCENDING CORONARY ARTERY: This is a diffusely diseased vessel, This patient has type 2 diabetes mellitus, hypertension, and CAD. It gives off 2 small diagonal branches that have tight lesions, but the amount of myocardium supplied by them is small. Beyond this, the caliber of the diagonal decreases. There is a diffuse plaque of about 40% to 50% throughout the LAD system. The diagonals are small in caliber and supply limited amount of myocardium. The mid and distal LAD is diffusely diseased and it gives off smaller branches towards the apical lateral wall. LAD therefore has diffuse plaque in the range of 50% or more in some areas with 2 small diagonal branches having high grade stenosis. LEFT POSTERIOR CIRCUMFLEX CORONARY ARTERY: A nondominant vessel, has an ostial proximal 95% stenosis in a calcified segment. It gives off a small first obtuse marginal and second obtuse marginal also has an 80% stenosis. The groove branch has mild diffuse disease and left atrial circumflex is free of significant disease. RIGHT CORONARY ARTERY: A dominant vessel, has a lesion in the midportion of about 80% heavily calcified, and beyond it the caliber improves. It bifurcates into PDA and PLV, both of which have diffuse disease throughout This is not an easily graftable vessel because of diffuse distal disease. FINAL IMPRESSION: This patient has a dominant RCA, a mid lesion of 70% to 80% in a heavily calcified segment with diffuse disease in the branches of distal right coronary artery. Left main coronary artery is free of significant disease. Circumflex has ostial 95%, proximal portion of obtuse marginal has an 85% lesion. The LAD is diffusely diseased with 40% to 50% disease throughout. RECOMMENDATIONS: I am after some deliberation, I felt that surgery is not a good option given the diffuse distal disease involving the distal aspect of the vessels and they are not easily graftable. Therefore I recommended intervention and proceeded to perform circumflex intervention in the same setting.
--- NOTE | 2016-08-26 07:03 | PTCA ---
DATE OF SERVICE: 08/24/2016 PROCEDURE: PTCA and stenting of ostial circumflex and proximal obtuse marginal branch of circumflex. PERFORMED BY: Dr. Ana Hernandez. CLINICAL INFORMATION: Mr. 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 He has had previous myocardial infarction, details of which are unavailable. He apparently had an angioplasty of one of his arteries in the mid or early . Since then, he has had a stress test a couple of years ago, which were unremarkable. He came into the hospital with episode of chest pain went on to have troponin elevation as well. Stress test revealed inferolateral ischemia. He was advised coronary angiography. Risks, benefits, options and rationale were discussed with the patient and his . Following coronary angiography, I recommended intervention of the ostium of the circumflex and proximal portion of the obtuse marginal branch and proceeded to perform this in the same setting. I used a Voda 3.5 guide catheter to cannulate the left coronary artery and whisper wire was used to cross the lesion, wire was kept in the distal obtuse marginal. A 2.5 caliber, 8 mm Trek balloon was used to predilate the lesion. This balloon was used to dilate the obtuse marginal branch, and the same balloon was used to dilate the proximal circumflex. There was significant recoil and I did not get a good result in the proximal circumflex, but the obtuse marginal result was good. I increased it to NC Trek 3.0 ( ) caliber balloon but I could not open the lesion. I tried to use a Flextome cutting balloon of ( ) mm length, but I could not advance the balloon because of the bulky nature of the balloon. I then deliberated and finally decided to use a 3.5 caliber, NC Trek balloon and with this at high pressures I was able to open the lesion. I then deployed a 3.0 caliber, 8 mm long Xience stent in this lesion with excellent angiographic result. I advanced a 2.25 caliber, 8 mm long Xience stent and deployed this in the first obtuse marginal. Excellent angiographic result was achieved. Patient received antiplatelet agent and also Angiomax bolus and infusion was given. Excellent angiographic result was achieved. The sheath was taken out and a TR band applied as per protocol. Good pulse was noted with good saturations. The patient was sent to the room in a stable condition with an excellent angiographic result. This patient received conscious sedation about 1-1/2 hours for coronary angiography and intervention with sedation being given by a combination of Versed, Dilaudid and also Benadryl. He was monitored very closely.
== END 2016-08-25 14:49 | disposition home or self-care (01) | DRG 247 ==
LOC: EC 09:03 → 3OBS 11:36 → 6SEL 20:09 → OBSVTOIN 08-24 14:13
PROVIDERS: ADMIT Hospitalist; ATTEND Hospitalist
PROC: B2111ZZ Fluoroscopy of Multiple Coronary Arteries using Low Osmolar Contrast (ICD-10-PCS; principal; 2016-08-25)
PROC: 4A023N7 Measurement of Cardiac Sampling and Pressure, Left Heart, Percutaneous Approach (ICD-10-PCS; principal; 2016-08-25)
PROC: 027035Z Dilation of Coronary Artery, One Artery with Two Drug-eluting Intraluminal Devices, Percutaneous Approach (ICD-10-PCS; principal; 2016-08-25)
DX: I21.4 Non-ST elevation (NSTEMI) myocardial infarction (principal); I10 Essential (primary) hypertension; G90.50 Complex regional pain syndrome I, unspecified; E11.9 Type 2 diabetes mellitus without complications; E78.5 Hyperlipidemia, unspecified; I25.119 Atherosclerotic heart disease of native coronary artery with unspecified angina pectoris; I25.2 Old myocardial infarction; J45.909 Unspecified asthma, uncomplicated; Z79.82 Long term (current) use of aspirin; Z79.84 Long term (current) use of oral hypoglycemic drugs; Z79.899 Other long term (current) drug therapy; Z87.891 Personal history of nicotine dependence; Z95.0 Presence of cardiac pacemaker; Z98.61 Coronary angioplasty status; Z88.1 Allergy status to other antibiotic agents; Z88.2 Allergy status to sulfonamides; Z88.8 Allergy status to other drugs, medicaments and biological substances
CPT/HCPCS: 36415; 71020; 71275; 78452; 80048; 80053; 80061; 82550; 82553; 83036; 83735; 84484; 85025; 85027; 85379; 85610; 85730; 93005; 93017; 93306; 93458; 96374; 99285

== ENCOUNTER → 2017-06-22 | Outpatient (CLI) | payer MEDICARE, BC ==
[2017-06-22 13:32] LABS: Anion Gap 14 mmol/L; Blood Urea Nitrogen 19 mg/dL (9-20); Carbon Dioxide 29 mmol/L (22-30); Chloride 99 mmol/L (98-107); Potassium 4.9 mmol/L (3.5-5.1); Sodium 142 mmol/L (137-145)
[2017-06-22 20:47] LABS: Hemoglobin A1C 7.7 % (4.0-6.0)
== END | disposition home or self-care (01) ==
LOC: LABWHC1 12:42
PROVIDERS: ATTEND Internal Medicine Cardiovascular Disease
DX: I25.10 Atherosclerotic heart disease of native coronary artery without angina pectoris (principal); E11.9 Type 2 diabetes mellitus without complications; I11.9 Hypertensive heart disease without heart failure; D64.9 Anemia, unspecified
CPT/HCPCS: 36415; 80051; 82565; 82607; 83036; 83540; 84520

== ENCOUNTER 2018-01-31 18:52 | Emergency (ER) | payer MEDICARE, BC ==
[2018-01-31] MEDS ORDERED: LIDOCAINE 1% INJ 10MG/ML (20 ML MDV) SQ ONE (19:24)
[2018-01-31] MEDS ORDERED: DIPH,PERTUS(ACELL)TETVAC-LF 0.5 ML VIAL IM ONE (19:24)
--- NOTE | 2018-01-31 19:25 | ED ---
Wound/Laceration HPI - General Chief Complaint: Wound/Laceration Stated Complaint: laceration rt index finger Time Seen by Provider: 01/31/18 19:14 Source: patient, RN notes reviewed Mode of arrival: ambulatory Limitations: no limitations - History of Present Illness Initial Comments: 62-year-old male presents emergency Department chief complaint laceration to his right hand index finger. Patient states that he was removing the corner bead of drywall states that the metal cut his finger. Patient has full range of motion denies any numbness or tingling. Patient states that he is unsure when his last tetanus was. Patient states that the bleeding is controlled at this time. Patient offers no other complaints. - Related Data Home Medications Medication Instructions Recorded Confirmed Cholecalciferol [Vitamin D3] 1,000 unit PO DAILY 05/31/15 01/31/18 Gabapentin [Neurontin] 600 mg PO DAILY 05/31/15 01/31/18 Glimepiride [Amaryl] 1 mg PO AC-BID 05/31/15 01/31/18 Ubidecarenone [Co Q-10] 100 mg PO DAILY 05/31/15 01/31/18 Vits A,C,E/Lutein/Minerals 1 tab PO DAILY 05/31/15 01/31/18 [Ocuvite with Lutein Tablet] metFORMIN HCL 1,000 mg PO BID 05/31/15 01/31/18 Gabapentin [Neurontin] 900 mg PO HS 08/23/16 01/31/18 Baclofen Intrathecal Pump 1 dose INTRATHECA DIRECTED 01/31/18 01/31/18 Baclofen [Lioresal] 10 mg PO HS 01/31/18 01/31/18 Dilaudid Intrathecal Pump 1 dose INTRATHECA DIRECTED 01/31/18 01/31/18 Furosemide [Lasix] 20 mg PO DAILY 01/31/18 01/31/18 Lisinopril [Zestril] 10 mg PO HS 01/31/18 01/31/18 Marcaine Intrathecal Pump 1 dose INTRATHECA DIRECTED 01/31/18 01/31/18 Previous Rx's Medication Instructions Recorded Aspirin 81 mg PO DAILY #30 tab 08/25/16 Atorvastatin [Lipitor] 80 mg PO HS #30 tab 08/25/16 Clopidogrel [Plavix] 75 mg PO DAILY #30 tab 08/25/16 Metoprolol Tartrate [Lopressor] 25 mg PO BID #60 tab 08/25/16 Allergies Allergy/AdvReac Type Severity Reaction Status Date / Time erythromycin base Allergy Severe Rash/Hives Verified 01/31/18 19:27 Sulfa (Sulfonamide Allergy Severe Rash/Hives Verified 01/31/18 19:27 Antibiotics) heparin AdvReac Severe Unknown Verified 01/31/18 19:27 Review of Systems ROS Statement: Those systems with pertinent positive or pertinent negative responses have been documented in the HPI. ROS Other: All systems not noted in ROS Statement are negative. Past Medical History Past Medical History: Asthma, Chest Pain / Angina, Diabetes Mellitus, Hyperlipidemia, Hypertension, Myocardial Infarction (CO), Neurologic Disorder, Osteoarthritis (OA), Skin Disorder Additional Past Medical History / Comment(s): RSD, lacerated spleen, venous stasis ulcers Last Myocardial Infarction Date:: 11/2013 History of Any Multi-Drug Resistant Organisms: MRSA Date of last positivie culture/infection: 01/21/2018 MDRO Source:: right groin Past Surgical History: Heart Catheterization With Stent, Pacemaker Additional Past Surgical History / Comment(s): spinal stimulator, 2 intrathecal pump, carpal tunnel, ulnar nerve, 2 pacemakers Past Anesthesia/Blood Transfusion Reactions: No Reported Reaction, Previous Problems w/ Anesthesia Additional Past Anesthesia/Blood Transfusion Reaction / Comment(s): surgery 2006 (removal of stimulator fromn infection)-6-8 hours of anesthisia, major fluid retention Date of Last Stent Placement:: 1994 Type of Cardiac Device: Permanent Pacemaker Device Placement Date:: 2014 Past Psychological History: No Psychological Hx Reported Smoking Status: Former smoker Past Alcohol Use History: None Reported Past Drug Use History: None Reported - Past Family History Father Family Medical History: Cancer General Exam Limitations: no limitations General appearance: alert, in no apparent distress Head exam: Present: atraumatic, normocephalic, normal inspection Respiratory exam: Present: normal lung sounds bilaterally. Absent: respiratory distress, wheezes, rales, rhonchi, stridor Cardiovascular Exam: Present: regular rate, normal rhythm, normal heart sounds. Absent: systolic murmur, diastolic murmur, rubs, gallop, clicks Extremities exam: Present: other (Right hand second digit there is a V-shaped laceration approximately 3 cm patient fingers neurovascularly intact with full range of motion full-strength) Skin exam: Present: warm, dry Course Vital Signs 09/18/18 19:04 Temperature 98.3 F Pulse Rate 65 Respiratory 18 Rate Blood Pressure 177/72 O2 Sat by Pulse 99 Oximetry Procedures - Laceration Laceration #1 Consent Obtained: verbal consent Indication: laceration Site: hand (Right hand second digit) Size (cm): 3 Description: irregular Depth: simple, single layer Anesthetic Used: lidocaine 1%, without epi Anesthesia Technique: local infiltration Amount (mls): 4 Pre-repair: wound explored, irrigated extensively, deep structures intact Type of Sutures: nylon Size of Sutures: 4-0 Number of Sutures: 7 Technique: simple, interrupted Patient Tolerated Procedure: well, no complications Medical Decision Making - Medical Decision Making 62-year-old male presented emergency department for right hand second digit laceration. This was closed using sutures. Patient has full range of motion there is no tendon laceration. We discussed that there is any change in his symptoms that he needs to be re-seen. Patient will follow-up for recheck in 48 hours return in 10 days for suture removal. Disposition Clinical Impression: Laceration of finger of right hand Disposition: HOME SELF-CARE Condition: Stable Instructions: Care For Your Stitches (ED), Finger Laceration (ED) Additional Instructions: Has sutures removed in 7 days.Please return to the Emergency Department if symptoms worsen or any other concerns. Is patient prescribed a controlled substance at d/c from ED?: No Referrals: Yareli Miranda MD [Primary Care Provider] - 1-2 days Time of Disposition: 19:51
[2018-01-31 20:05] VITALS: BP 135/65; PULSE 69; RESP 20; TEMP 98.2
== END 2018-01-31 20:00 | disposition home or self-care (01) ==
LOC: EC 18:52
DX: S61.210A Laceration without foreign body of right index finger without damage to nail, initial encounter (principal); E11.9 Type 2 diabetes mellitus without complications; E78.5 Hyperlipidemia, unspecified; I10 Essential (primary) hypertension; I25.2 Old myocardial infarction; M19.90 Unspecified osteoarthritis, unspecified site; Z86.14 Personal history of Methicillin resistant Staphylococcus aureus infection; Z23 Encounter for immunization; Z95.5 Presence of coronary angioplasty implant and graft; Z95.0 Presence of cardiac pacemaker; Z79.84 Long term (current) use of oral hypoglycemic drugs; Z79.899 Other long term (current) drug therapy; Z79.891 Long term (current) use of opiate analgesic; Z88.1 Allergy status to other antibiotic agents; Z88.2 Allergy status to sulfonamides; Z88.8 Allergy status to other drugs, medicaments and biological substances; W45.8XXA Other foreign body or object entering through skin, initial encounter; Y92.009 Unspecified place in unspecified non-institutional (private) residence as the place of occurrence of the external cause
CPT/HCPCS: 90715; 99282; 12002; 90471; J2001